=== PATIENT | female | born 2000 | race Caucasian/White ===

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

== ENCOUNTER → 2021-03-12 | Outpatient (CLI) | payer SELFPAY ==
[~2021-03-12] MED LIST changes: -RIZA10TA25; +RIZA10TA94; -RT-ALBUTEROL SULF 2.5 MG/3 ML PRE-MIX VIAL INH ONE; -RT-ALBUTEROL SULF 2.5 MG/3 ML PRE-MIX VIAL ONE
--- NOTE | 2021-03-12 16:49 | Diagnostic Imaging Report ---
EXAMINATION: US thyroid. TECHNIQUE: Multiple real-time grayscale images were obtained of the thyroid in various projections. HISTORY: Neck palpable abnormality. COMPARISON: Thyroid ultrasound 04/23/2018. FINDINGS: The right lobe of the thyroid measures 5.1 x 1.3 x 1.2 cm. There is a 0.7 cm solid, mildly hypoechoic, wider than tall nodule with smooth margins. The right lobe is otherwise homogeneous. The left lobe of the thyroid measures 3.8 x 0.9 x 1.5 cm. The left lobe is homogeneous without focal nodule. The isthmus is normal and measures 0.2 cm. No suspicious adenopathy within the visualized neck. IMPRESSION: A subcentimeter solid nodule is within the right lobe of the thyroid gland, TI-RADS 4. This lesion does not meet criteria for follow-up or fine needle aspiration given its small size. TIRADS 1: Benign No FNA or follow-up required TIRADS 2: Not Suspicious No FNA or follow-up required TIRADS 3: Mildly Suspicious FNA if ? 2.5 cm Follow if ? 1.5 cm (At 1, 3 and 5 years from initial scan) TIRADS 4: Moderately Suspicious FNA if ? 1.5 cm Follow if ? 1 cm (At 1, 2, 3 and 5 years from initial scan) TIRADS 5: Highly Suspicious FNA if ? 1 cm Follow if ? 0.5 cm (Annually for 5 years from initial scan) Dictated by: Dictated on workstation # [id number]
== END ==
LOC: RAD 15:45
PROVIDERS: ATTEND Family Medicine
DX: E04.1 Nontoxic single thyroid nodule (principal)
CPT/HCPCS: 76536

== ENCOUNTER → 2021-06-10 | Outpatient (CLI) | payer OTHER ==
[~2021-06-10] MED LIST changes: +RT-ALBUTEROL SULF 2.5 MG/3 ML PRE-MIX VIAL INH ONE
== END ==
LOC: RT 15:51
PROVIDERS: ATTEND Nurse Practitioner Family
DX: J45.909 Unspecified asthma, uncomplicated (principal)
CPT/HCPCS: 94060; 94726; 94729

== ENCOUNTER 2022-11-27 08:01 | Emergency (ER) | payer OTHER ==
[~2022-11-27] VITALS: Ht 167 cm; Wt 68.0 kg
[~2022-11-27 08:01] MED LIST changes: -RT-ALBUTEROL SULF 2.5 MG/3 ML PRE-MIX VIAL INH ONE
[2022-11-27] MEDS ORDERED: FAMOTIDINE 20 MG (PEPCID) TABLET PO STA (09:28)
[2022-11-27] MEDS ORDERED: IBUPROFEN 800 MG (MOTRIN) TAB PO STA (09:28)
[2022-11-27] MEDS ORDERED: diphenhydrAMINE 25 MG TAB (BENADRYL) PO ONE (09:30)
[2022-11-27] MEDS ORDERED: predniSONE 20 MG TAB PO ONE (09:30)
--- NOTE | 2022-11-27 09:36 | ED General ---
General Chief Complaint: Allergic Reaction Stated Complaint: SOB, BODY ACHES Nursing Triage Note: ARRIVED VIA AMB TO TRIAGE. STATES SHE IS ALLERGIC TO WEED AND EVERYONE WHO CAME THRU THE DRIVE THRU WAS SMOKING WEED. PT STATES SHE IS SOA. Source of Information: Patient Exam Limitations: No Limitations History of Present Illness Date Seen by Provider: Nov 27, 2022 Time Seen by Provider: 09:19 Initial Comments Here with report of possible allergic reaction to marijuana. 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 This did cause her to vomit and she felt like she was having an asthma attack. She did use her inhaler last night but has not today. Her allergic reaction also causes body aches which she is feeling currently. She did take Excedrin at 2 AM but has not taken anything since. She has not taken any Benadryl or famotidine. She is able to speak in full sentences. She wanted to make sure she was okay but is also asking for a work note for today. Timing/Duration: 12 Hours Severity: Moderate Associated Systoms: Nausea/Vomiting, Shortness of Air Allergies and Home Medications Allergies Coded Allergies: marijuana (cannabis) (Verified Allergy, Severe, SOA, 11/27/22) Opioids - Morphine Analogues (Verified Allergy, Unknown, 11/27/22) erythromycin base (Unverified Allergy, Unknown, 04/24/18) Patient Home Medication List Home Medication List Reviewed: Yes Amoxicillin/Potassium Clav (Augmentin 875-125 Tablet) 1 Each Tablet, 1 EACH PO BID Prescribed by: ZAYRA POTTER on 10/27/17 0444 Azelastine HCl (Azelastine HCl) 137 Mcg/0.137 Ml [place].pump, (Reported) Entered as Reported by: TIMOTHY ROSS on 07/02/172338 Beclomethasone Dipropionate (Qvar) 8.7 Gm Aer.w.adap, (Reported) Entered as Reported by: TIMOTHY ROSS on 07/02/172338 Fluticasone Propionate (Fluticasone Propionate) 16 Gm [place].susp, (Reported) Entered as Reported by: TIMOTHY ROSS on 07/02/172338 Inhaler, Assist Devices (Aerochamber Plus Flow-Vu) 1 Each Spacer, (Reported), (DME) Entered as Reported by: TIMOTHY ROSS on 07/02/172338 Levalbuterol Tartrate (Levalbuterol Tartrate Hfa) 15 Gm Hfa.aer.ad, (Reported) Entered as Reported by: TIMOTHY ROSS on 07/02/172338 Olopatadine HCl (Pazeo) 2.5 Ml Drops, (Reported) Entered as Reported by: TIMOTHY ROSS on 07/02/172338 Ondansetron (Ondansetron Odt) 4 Mg Tab.rapdis, 4 MG PO Q6H PRN for NAUSEA/VOMITING Prescribed by: ZAYRA POTTER on 10/27/17 0444 Ondansetron (Zofran Odt) 4 Mg Tab.rapdis, 4 MG SL Q4H PRN for NAUSEA/VOMITING- 1ST LINE Prescribed by: NIURKA PALMER on 04/24/18 0614 Prednisone (Prednisone) 20 Mg Tab, 40 MG PO DAILY Prescribed by: TIAN KOCH on 05/14/19 0227 Rizatriptan Benzoate (Rizatriptan) 10 Mg Tab.rapdis, (Reported) Entered as Reported by: LON SALEH on 10/27/17315 [Proventil] , (Reported) Entered as Reported by: LON SALEH on 10/27/17315 Review of Systems Review of Systems Constitutional: see HPI; No chills, No fever EENTM: No throat pain, No throat swelling Respiratory: cough, short of breath Cardiovascular: no symptoms reported Gastrointestinal: nausea, vomiting Musculoskeletal: muscle pain Past Nenvuzv-Sbfuwv-Zjngmb Hx Patient Social History Tobacco Use?: No Substance use?: No Alcohol Use?: Yes Alcohol Frequency: Rarely Immunizations Up To Date PED Vaccines UTD: Yes Seasonal Allergies Seasonal Allergies: Yes Past Medical History Surgeries: Yes Adenoidectomy, Orthopedic, Rectal, Tonsillectomy Respiratory: Yes Asthma Cardiac: No Neurological: Yes Headaches /Migraines Reproductive Disorders: No (HAS NEXPLANON IN PLACE) Sexually Transmitted Disease: No Genitourinary: No 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 oz. 68.000892xz; 24.00 BMI Method:Stated General Appearance: No Apparent Distress, Anxious HEENT: PERRL/EOMI, Pharynx Normal Neck: Non Tender, Supple Respiratory: Lungs Clear, Normal Breath Sounds Cardiovascular: Regular Rate, Rhythm, No Murmur Neurologic/Psychiatric: Alert, Oriented x3 Skin: Normal Color, Warm/Dry Progress/Results/Core Measures Suspected Sepsis SIRS Temperature: Pulse: 98 Respiratory Rate: 16 Blood Pressure 138 /84 Mean: 102 Results/Orders My Orders Orders - TIAN KOCH MD Ibuprofen Tablet (Motrin Tablet) (11/27/22 09:28) Famotidine Tablet (Pepcid Tablet) (11/27/22 09:28) Prednisone Tablet (Deltasone Tablet) (11/27/22 09:30) Diphenhydramine Tablet (Benadryl Tablet) (11/27/22 09:30) Vital Signs/I&O 11/27/22 08:05 Temp 36.9 Pulse 98 Resp 16 B/P (MAP) 138/84 (102) Pulse Ox 98 O2 Delivery Room Air Capillary Refill : Less Than 3 Seconds Blood Pressure Mean: 102 Progress Note : Progress Note Seen and evaluated. Given her constellation of symptoms and concerns, we will go ahead and initiate diphenhydramine 25 mg p.o., famotidine 20 mg p.o., ibuprofen 800 mg p.o. and prednisone 40 mg p.o. I did discuss patient's therapy and [id number] treatment. We will provide work note. Discharged home with return precautions. Patient verbalized understanding of instructions and agreement with plan. Departure Impression Primary Impression: Allergic reaction Qualified Codes: T78.40XA - Allergy, unspecified, initial encounter Disposition: 01 HOME, SELF-CARE Condition: Stable Departure-Patient Inst. Decision time for Depature: 09:34 Referrals: BAL PETERSON DO (PCP/Family) Primary Care Physician Patient Instructions: Allergic Reaction ED Add. Discharge Instructions: All discharge instructions reviewed with patient and/or family. Voiced understanding. You may take dnwa-ypo-knixvha Benadryl or the generic diphenhydramine 25 mg every 6 hours as needed for itching or allergic reaction. You may also take [id number] Pepcid or the generic famotidine 20 mg once or twice daily as needed as well. Off work today. Drink plenty of fluids and get plenty of rest. Follow-up with your doctor in a few days for recheck. Return for worse pain, fever, vomiting, weakness, breathing problems or other concerns as needed. Work/School Note: Work Release Form Date Seen in the Emergency Department: Nov 27, 2022 Return to Work: Nov 28, 2022 Restrictions: No Restrictions TIAN KOCH MD Nov 27, 2022 09:36
[2022-11-27 09:53] VITALS: BP 127/78
== END 2022-11-27 09:54 | disposition home or self-care (01) ==
LOC: EDUNIT# 08:01 → ER 08:03
DX: R06.02 Shortness of breath (principal); R11.2 Nausea with vomiting, unspecified; M79.10 Myalgia, unspecified site; T40.715A Adverse effect of cannabis, initial encounter
CPT/HCPCS: 99282

== ENCOUNTER 2023-05-15 06:41 | Emergency (ER) | payer OTHER ==
[~2023-05-15] VITALS: Ht 167.7 cm; Wt 74.8 kg
--- NOTE | 2023-05-15 06:55 | ED General ---
General Stated Complaint: RT EAR PX,POSS BUG IN EAR Source of Information: Patient Exam Limitations: No Limitations History of Present Illness Date Seen by Provider: May 15, 2023 Time Seen by Provider: 06:43 Initial Comments 23-year-old female with no pertinent past medical history coming in feeling like there is a bug in her right ear. It woke her up, felt a crawling around, felt like it was biting into her ear earlier today. She put some water in it initially, and later some Listerine to try to kill it. She does feel like it stopped moving after the Listerine. She is otherwise denying any other acute complaints. Tetanus is up-to-date. Allergies and Home Medications Allergies Coded Allergies: marijuana (cannabis) (Verified Allergy, Severe, SOA, 11/27/22) Opioids - Morphine Analogues (Verified Allergy, Unknown, 11/27/22) erythromycin base (Unverified Allergy, Unknown, 04/24/18) Patient Home Medication List Home Medication List Reviewed: Yes Amoxicillin/Potassium Clav (Augmentin 875-125 Tablet) 1 Each Tablet, 1 EACH PO BID Prescribed by: ZAYRA POTTER on 10/27/17 0444 Azelastine HCl (Azelastine HCl) 137 Mcg/0.137 Ml [place].pump, (Reported) Entered as Reported by: TIMOTHY ROSS on 07/02/172338 Beclomethasone Dipropionate (Qvar) 8.7 Gm Aer.w.adap, (Reported) Entered as Reported by: TIMOTHY ROSS on 07/02/172338 Fluticasone Propionate (Fluticasone Propionate) 16 Gm [place].susp, (Reported) Entered as Reported by: TIMOTHY ROSS on 07/02/172338 Inhaler, Assist Devices (Aerochamber Plus Flow-Vu) 1 Each Spacer, (Reported), (DME) Entered as Reported by: TIMOTHY ROSS on 07/02/172338 Levalbuterol Tartrate (Levalbuterol Tartrate Hfa) 15 Gm Hfa.aer.ad, (Reported) Entered as Reported by: TIMOTHY ROSS on 07/02/172338 Olopatadine HCl (Pazeo) 2.5 Ml Drops, (Reported) Entered as Reported by: TIMOTHY ROSS on 07/02/172338 Ondansetron (Ondansetron Odt) 4 Mg Tab.rapdis, 4 MG PO Q6H PRN for NAUSEA/ VOMITING Prescribed by: ZAYRA POTTER on 10/27/17 0444 Ondansetron (Zofran Odt) 4 Mg Tab.rapdis, 4 MG SL Q4H PRN for NAUSEA/VOMITING- 1ST LINE Prescribed by: NIURKA PALMER on 04/24/18 0614 Prednisone (Prednisone) 20 Mg Tab, 40 MG PO DAILY Prescribed by: TIAN KOCH on 05/14/19 0227 Rizatriptan Benzoate (Rizatriptan) 10 Mg Tab.rapdis, (Reported) Entered as Reported by: LON SALEH on 10/27/17315 [Proventil] , (Reported) Entered as Reported by: LON SALEH on 10/27/17315 Review of Systems Review of Systems Constitutional: No fever EENTM: see HPI Respiratory: no symptoms reported Cardiovascular: no symptoms reported Gastrointestinal: no symptoms reported Genitourinary: no symptoms reported Musculoskeletal: no symptoms reported Skin: no symptoms reported Psychiatric/Neurological: No Symptoms Reported Past Pfeauie-Roucqa-Uwkjap Hx Patient Social History Tobacco Use?: No Substance use?: No Alcohol Use?: No Immunizations Up To Date PED Vaccines UTD: Yes Seasonal Allergies Seasonal Allergies: Yes Past Medical History Surgeries: Yes Adenoidectomy, Orthopedic, Rectal, Tonsillectomy Respiratory: Yes Asthma Cardiac: No Neurological: Yes Headaches /Migraines Reproductive Disorders: No (HAS NEXPLANON IN PLACE) Sexually Transmitted Disease: No Genitourinary: No 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 oz. 68.077908ip; 24.00 BMI Method:Stated General Appearance: No Apparent Distress, WD/WN Eyes: Bilateral Eye Normal Inspection HEENT: PERRL/EOMI, Pharynx Normal, Other (Left TM normal, right TM obstructed by dark object) Neck: Full Range of Motion, Normal Inspection, Non Tender, Supple Respiratory: Chest Non Tender, Lungs Clear, Normal Breath Sounds, No Accessory Muscle Use, No Respiratory Distress Cardiovascular: Regular Rate, Rhythm, No Edema, Normal Peripheral Pulses Gastrointestinal: Normal Bowel Sounds, Non Tender, Soft Neurologic/Psychiatric: Alert Skin: Normal Color, Warm/Dry Procedures/Interventions 5 cc of 1% lidocaine were first placed directly into the ear canal on the right to attempt to kill the insect that was likely there. This was left for a few minutes and then allowed to drain out. I then attempted with a light and curette to remove the debris, however her ear canal turns very anterior and I was unable to make the full turn and safely retrieve what ever was in her ear. I flushed it out with saline and still nothing came out. Progress/Results/Core Measures Suspected Sepsis SIRS Temperature: Pulse: Respiratory Rate: Blood Pressure / Mean: Results/Orders My Orders Orders - BELÉN FREEMAN MD Lidocaine 2% Injection 20 Ml (Xylocaine (05/15/23 07:00) Lidocaine 1% Inj 10 Ml (Xylocaine 1% Inj (05/15/23 06:57) Neomy/Poly/Hc Otic Suspension (Cortispor (05/15/23 07:17) Medications Given in ED Current Medications Medications Dose Ordered Sig/María Route Start Time Stop Time Status Last Admin Dose Admin Lidocaine HCl 10 ml STK-MED ONCE .ROUTE 05/15/23 06:57 05/15/23 07:00 DC 05/15/23 07:03 10 ML Vital Signs/I&O 05/15/23 06:54 Temp 37.0 Pulse 73 B/P (MAP) 126/84 (98) Pulse Ox 100 O2 Delivery Room Air Capillary Refill : Progress Note : Progress Note 23-year-old female with above history coming in due to concerns for a bug in her ear. ABCs were intact and vitals are stable on presentation. Physical exam with a dark object in her right ear which could be old wax versus an insect like she states. Attempted to both flush it out and then get it out with a curette, unfortunately her canal turns very anterior and the instrument would not make the turn fully where I could still safely see her tympanic membrane. I aborted the procedure due to this. We will put her on antibiotic drops and have her follow up with ENT as an outpatient. Her tetanus is UTD. Departure Impression Primary Impression: Foreign body in ear Qualified Codes: T16.1XXA - Foreign body in right ear, initial encounter Disposition: 01 HOME, SELF-CARE Condition: Stable Departure-Patient Inst. Decision time for Depature: 07:30 Referrals: JANICE FAIRCHILD MD, JACQUELINE S DO (PCP/Family) Primary Care Physician Patient Instructions: Foreign Body in Ear (DC) Add. Discharge Instructions: There is still a foreign body in your ear. It looked like a dark object that was not in the other side. This could be an insect or quite frankly could be old/dry wax (appeared more like an insect). Please follow up with Dr. Fairchild to have it removed. Put 4 drops of the antibiotics in your ear 4 times a day for the next week as well. Take ibuprofen as needed for pain. Expect some mild bleeding from your ear as a possibility for the next day or so. Work/School Note: Work Release Form Date Seen in the Emergency Department: May 15, 2023 Return to Work: May 16, 2023 Restrictions: No Restrictions BELÉN FREEMAN MD May 15, 2023 06:55
[2023-05-15] MEDS ORDERED: LIDOCAINE 1% INJ 10 ML VIAL ONE (06:57)
[2023-05-15] MEDS ORDERED: LIDOCAINE 2% INJ 20 ML VIAL INJ ONE (07:00)
[2023-05-15] MEDS ORDERED: NEOMY/POLYM/HC (CORTISPORIN) 10 ML BTL OT STA (07:17)
[2023-05-15 07:32] VITALS: BP 126/84
== END 2023-05-15 07:32 | disposition home or self-care (01) ==
LOC: EDUNIT# 06:41 → ER 06:45
DX: T16.1XXA Foreign body in right ear, initial encounter (principal)
CPT/HCPCS: 99281

== ENCOUNTER 2023-05-27 13:58 | Emergency (ER) | payer OTHER ==
[~2023-05-27] VITALS: Ht 167.7 cm; Wt 78.0 kg
[2023-05-27 14:03] VITALS: BP 128/75
[2023-05-27] MEDS ORDERED: NS IV 1000 ML 1,000 ML IV STA (14:10)
--- NOTE | 2023-05-27 14:14 | ED Headache ---
General Chief Complaint: Head/Cervical Problems Stated Complaint: MIGRAINE Nursing Triage Note: Patient c/o migraine headache that started today. Patient c/o nausea, but denies any vomiting. Patient denies any visual changes. Patient was able to walk to ER room #6 with steady gait. Patient denies any recent head trauma. Patient states this is a normal migraine for her. Source: patient Exam Limitations: no limitations History of Present Illness Date Seen by Provider: May 27, 2023 Time Seen by Provider: 14:11 Initial Comments Patient is a 23-year-old female with a history of migraines who presents the ED for a headache. Started around 1130 this morning when she woke up. She works night club manager. She reports a sharp pain to her neck with a pressure behind her left eye. Rates pain 8 out of 10. This feels very similar to her previous migraines. She was diagnosed with migraines in third grade. She states she does take a triptan as needed but states she had no improvement today when she did take the medication. She also took Excedrin Migraine and 1 dose of 10 mg o ral Toradol without much improvement. Nausea without vomiting. No visual loss, unilateral muscle weakness or sensory changes. Denies of any head injury. No recent cough, runny nose, sore throat. Patient without any photophobia or phonophobia Allergies and Home Medications Allergies Coded Allergies: marijuana (cannabis) (Verified Allergy, Severe, SOA, 11/27/22) Opioids - Morphine Analogues (Verified Allergy, Unknown, 11/27/22) erythromycin base (Unverified Allergy, Unknown, 04/24/18) Patient Home Medication List Home Medication List Reviewed: Yes Amoxicillin/Potassium Clav (Augmentin 875-125 Tablet) 1 Each Tablet, 1 EACH PO BID Prescribed by: ZAYRA POTTER on 10/27/17 0444 Azelastine HCl (Azelastine HCl) 137 Mcg/0.137 Ml [place].pump, (Reported) Entered as Reported by: TIMOTHY ROSS on 07/02/172338 Beclomethasone Dipropionate (Qvar) 8.7 Gm Aer.w.adap, (Reported) Entered as Reported by: TIMOTHY ROSS on 07/02/172338 Fluticasone Propionate (Fluticasone Propionate) 16 Gm [place].susp, (Reported) Entered as Reported by: TIMOTHY ROSS on 07/02/172338 Inhaler, Assist Devices (Aerochamber Plus Flow-Vu) 1 Each Spacer, (Reported), (DME) Entered as Reported by: TIMOTHY ROSS on 07/02/172338 Levalbuterol Tartrate (Levalbuterol Tartrate Hfa) 15 Gm Hfa.aer.ad, (Reported) Entered as Reported by: TIMOTHY ROSS on 07/02/172338 Olopatadine HCl (Pazeo) 2.5 Ml Drops, (Reported) Entered as Reported by: TIMOTHY ROSS on 07/02/172338 Ondansetron (Ondansetron Odt) 4 Mg Tab.rapdis, 4 MG PO Q6H PRN for NAUSEA/VOMITING Prescribed by: ZAYRA POTTER on 10/27/17 0444 Ondansetron (Zofran Odt) 4 Mg Tab.rapdis, 4 MG SL Q4H PRN for NAUSEA/VOMITING- 1ST LINE Prescribed by: NIURKA PALMER on 04/24/18 0614 Prednisone (Prednisone) 20 Mg Tab, 40 MG PO DAILY Prescribed by: TIAN KOCH on 05/14/19 0227 Rizatriptan Benzoate (Rizatriptan) 10 Mg Tab.rapdis, (Reported) Entered as Reported by: LON SALEH on 10/27/17315 [Proventil] , (Reported) Entered as Reported by: LON SALEH on 10/27/17315 Review of Systems Review of Systems Constitutional: No chills, No diaphoresis Eyes: Denies Blindness, Denies Blurred Vision Ears, Nose, Mouth, Throat: denies ear pain Respiratory: No cough, No dyspnea on exertion Cardiovascular: No chest pain, No edema Gastrointestinal: No abdominal pain, No diarrhea, No nausea, No vomiting Genitourinary: No decreased output, No discharge, No dysuria, No frequency, No hematuria Musculoskeletal: No back pain, No joint pain Skin: No change in color, No change in hair/nails Psychiatric/Neurological: Other (headache) All Other Systems Reviewed Negative Unless Noted: Yes Past Tqjlboi-Cxqxug-Gwuihj Hx Immunizations Up To Date PED Vaccines UTD: Yes Seasonal Allergies Seasonal Allergies: Yes Past Medical History Surgery/Hospitalization HX: wisdom teeth, tonsilectomy Surgeries: Yes Adenoidectomy, Orthopedic, Rectal, Tonsillectomy Respiratory: Yes Asthma Cardiac: No Neurological: Yes Headaches /Migraines Reproductive Disorders: No (HAS NEXPLANON IN PLACE) Sexually Transmitted Disease: No Genitourinary: No Gastrointestinal: Yes (congenital partially imperforate anus requiring ano plasty) Musculoskeletal: No Endocrine: No HEENT: No Cancer: No Psychosocial: Yes Anxiety, PTSD, Depression Integumentary: No Blood Disorders: No Family Medical History No Pertinent Family Hx Physical Exam Vital Signs Vital Signs - First Documented 05/27/23 14:03 Temp 36.6 Pulse 94 Resp 14 B/P (MAP) 128/75 (92) O2 Delivery Room Air Capillary Refill : Height, Weight, BMI Height: 5'6.00" Weight: 150lbs. oz. 68.698474qe; 27.00 BMI Method:Stated General Appearance: WD/WN, no apparent distress HEENT: PERRL/EOMI, normal ENT inspection, TMs normal, pharynx normal Neck: non-tender, full range of motion, supple Cardiovascular: regular rate, rhythm, no edema, no gallop, no JVD Respiratory: chest non-tender, lungs clear, normal breath sounds, no respiratory distress, no accessory muscle use Gastrointestinal: normal bowel sounds, non tender, soft, no organomegaly Back: normal inspection, no CVA tenderness, no vertebral tenderness Extremities: normal range of motion, non-tender, normal inspection, no pedal edema Coordination/Gait: normal finger to nose, normal gait Motor/Sensory: no motor deficit, no sensory deficit, no pronator drift Skin: normal color, warm/dry Progress/Results/Core Measures Results/Orders My Orders Orders - BELÉN AVALOS Ketorolac Injection (Ketorolac Injection (05/27/23 14:15) Diphenhydramine Injection (Diphenhydram (05/27/23 14:15) Prochlorperazine Injection (Prochlorpera (05/27/23 14:15) Ns Iv 1000 Ml (Ns Iv 1000 Ml) (05/27/23 14:10) Medications Given in ED Current Medications Medications Dose Ordered Sig/María Route Start Time Stop Time Status Last Admin Dose Admin Diphenhydramine HCl 25 mg ONCE ONCE IVP 05/27/23 14:15 05/27/23 14:16 DC 05/27/23 14:27 25 MG Ketorolac Tromethamine 30 mg ONCE ONCE IVP 05/27/23 14:15 05/27/23 14:16 DC 05/27/23 14:26 30 MG Prochlorperazine Edisylate 10 mg ONCE ONCE IV 05/27/23 14:15 05/27/23 14:16 DC 05/27/23 14:31 10 MG Vital Signs/I&O 05/27/23 14:03 Temp 36.6 Pulse 94 Resp 14 B/P (MAP) 128/75 (92) O2 Delivery Room Air Blood Pressure Mean: 92 Departure Communication (PCP) Patient is a 23-year-old female who presents ED with a migraine. History of migraines and states today's head pain feels very similar. Located on the left side of her head behind her left eye. No visual loss, unilateral weakness or sensory changes. No photophobia or phonophobia. No neurological red flag findings. No meningeal signs. No improvement with Excedrin Migraine and her rizatriptan. Clinically appears to be a migraine. Due to today's head pain feeling very similar to her chronic migraines imaging was held. She did receive a dose of Toradol, Compazine, Benadryl and a liter of fluid as a migraine cocktail. After a hour and a half patient's pain has improved significantly. She states she feels much better and would like to be discharged. Recommend rest for the next 1 to 2 days. Recommend staying hydrated. Continue with your medication at home. If any worsening symptoms return back to ED for further evaluation. Vital signs stable. Follow-up with PCP in 2 days for reevaluation Impression Primary Impression: Migraine Disposition: 01 HOME, SELF-CARE Condition: Stable Departure-Patient Inst. Decision time for Depature: 15:08 Referrals: BAL PETERSON DO (PCP/Family) Primary Care Physician Patient Instructions: Migraines (DC) Add. Discharge Instructions: Continue with your medication as prescribed. If any worsening symptoms to return back to ED. Recommend resting for the next 1 to 2 days All discharge instructions reviewed with patient and/or family. Voiced understanding. Work/School Note: Work Release Form Date Seen in the Emergency Department: May 27, 2023 Return to Work: May 29, 2023 BELÉN AVALOS May 27, 2023 14:13
[2023-05-27] MEDS ORDERED: KETOROLAC INJ 30 MG/ML VIAL IVP ONE (14:15)
[2023-05-27] MEDS ORDERED: PROCHLORPERAZINE INJ 10 MG/2ML VIAL IV ONE (14:15)
[2023-05-27] MEDS ORDERED: diphenhydrAMINE INJ 50 MG/ML VIAL IVP ONE (14:15)
== END 2023-05-27 15:14 | disposition home or self-care (01) ==
LOC: EDUNIT# 13:58 → ER 14:00
DX: G43.909 Migraine, unspecified, not intractable, without status migrainosus (principal); Z79.899 Other long term (current) drug therapy